=== PATIENT | female | born 1965 | race African-American/Black ===

== ENCOUNTER 2020-04-02 15:41 | Emergency (ER) | payer OTHER ==
[~2020-04-02 15:41] MED LIST: ABILIFY10 MG PO; AMITRIPTYLINE H25 MG PO; ARIMIDEX1 MG PO; BALANCED B-100100 MG PO; CYCLOBENZAPRINE10 MG PO; ELIQUIS2.5 MG PO; FLOVENT DISKUS50 MCG INH; FLUTICASONE SPRAY; GABAPENTIN600 MG PO; GLUCOPHAGE XR500 MG PO; HYDROCODON-ACE1 EAC2 PO; LOTREL 10-40 M1 EACH PO; METHOCARBAMOL750 MG PO; NORTRIPTYLINE H25 MG PO; PERCOCET 10-321 EACH PO; SERTRALINE HCL100 MG PO; TRAMADOL HCL50 MG PO; TRAZODONE HCL150 MG PO; VENTOLIN HFA 66.7 GM INH; VITAMIN B-6100 MG PO; VITAMIN D250 MCG PO; ZOCOR40 MG PO; ZOFRAN ODT 4 MG4 MG PO; ZOFRAN ODT 4 MG4 MG SL; ZOFRAN4 MG PO
[2020-04-02] MEDS ORDERED: HYDROCODON-ACE1 EAC4 PO ×3 (20:16→20:46)
== END 2020-04-02 21:00 | disposition home or self-care (01) ==
LOC: ER1 15:41
DX: M25.552 Pain in left hip (principal); E11.9 Type 2 diabetes mellitus without complications; I10 Essential (primary) hypertension; F17.200 Nicotine dependence, unspecified, uncomplicated; Z79.84 Long term (current) use of oral hypoglycemic drugs
CPT/HCPCS: 73502; 99283

== ENCOUNTER 2020-07-07 14:48 | Emergency (ER) | payer OTHER ==
[~2020-07-07 14:48] MED LIST changes: +HYDROCODON-ACE1 EAC4 PO
[2020-07-07 16:43] LABS: HEMOGLOBIN 13.8 gm/dl (12.3-15.3); RED BLOOD COUNT 4.78 M/UL (4.00-5.10); WHITE BLOOD COUNT 8.5 K/UL (4.5-11.0)
[2020-07-07 16:59] LABS: BUN/CREATININE RATIO 12 (0-10)
[2020-07-07] MEDS ORDERED: CYCLOBENZAPRINE5 MG PO (17:52)
[2020-07-07] MEDS ORDERED: MOBIC15 MG PO (17:52)
[2020-07-07] MEDS ORDERED: CEPHALEXIN500 M1 PO (17:52)
== END 2020-07-07 20:05 | disposition home or self-care (01) ==
LOC: ER1 14:48
PROVIDERS: Physician Assistant
DX: S16.1XXA Strain of muscle, fascia and tendon at neck level, initial encounter (principal); S29.012A Strain of muscle and tendon of back wall of thorax, initial encounter; S39.012A Strain of muscle, fascia and tendon of lower back, initial encounter; S46.912A Strain of unspecified muscle, fascia and tendon at shoulder and upper arm level, left arm, initial encounter; S30.1XXA Contusion of abdominal wall, initial encounter; E11.9 Type 2 diabetes mellitus without complications; E78.00 Pure hypercholesterolemia, unspecified; J45.909 Unspecified asthma, uncomplicated; I10 Essential (primary) hypertension; F17.210 Nicotine dependence, cigarettes, uncomplicated; V49.40XA Driver injured in collision with unspecified motor vehicles in traffic accident, initial encounter; Y92.410 Unspecified street and highway as the place of occurrence of the external cause
CPT/HCPCS: 70450; 71045; 72070; 72100; 72125; 73030; 80053; 81001; 83690; 85025; 99284; Q9967

== ENCOUNTER 2020-10-03 20:48 | Emergency (ER) | payer OTHER ==
[~2020-10-03 20:48] MED LIST changes: +CEPHALEXIN500 M1 PO; +CYCLOBENZAPRINE5 MG PO; +MOBIC15 MG PO
== END 2020-10-03 22:34 | disposition left against medical advice (07) ==
LOC: ER1 20:48
DX: Z53.21 Procedure and treatment not carried out due to patient leaving prior to being seen by health care provider (principal)

== ENCOUNTER 2021-07-21 21:44 | Emergency (ER) | payer OTHER | END 2021-07-21 22:14 | disposition left against medical advice (07) | LOC: ER1 21:44 | DX: Z53.21 Procedure and treatment not carried out due to patient leaving prior to being seen by health care provider (principal) ==